=== PATIENT | male | born 1965 | race Caucasian/White ===

== ENCOUNTER 2018-11-30 16:48 | Emergency (ER) | payer OTHER ==
[~2018-11-30] VITALS: Ht 177.8 cm; Wt 104.3 kg
[2018-11-30] MEDS ORDERED: ROBAXIN-750750 MG PO (20:28)
[2018-11-30] MEDS ORDERED: NORCO 5-325 TA1 EACH PO (20:28)
== END 2018-11-30 20:45 | disposition home or self-care (01) ==
LOC: ED 16:48
DX: S13.9XXA Sprain of joints and ligaments of unspecified parts of neck, initial encounter (principal); S20.212A Contusion of left front wall of thorax, initial encounter; M25.512 Pain in left shoulder; M25.511 Pain in right shoulder; Z88.6 Allergy status to analgesic agent; V43.52XA Car driver injured in collision with other type car in traffic accident, initial encounter; Y93.I9 Activity, other involving external motion; Y92.488 Other paved roadways as the place of occurrence of the external cause; Y99.8 Other external cause status